=== PATIENT | male | born 1975 | race American Indian/Alaskan Native ===

== ENCOUNTER 2021-01-04 22:53 | Emergency (ER) | payer BC ==
[2021-01-04 23:08] VITALS: BP 137/93; PULSE 122
--- NOTE | 2021-01-04 23:44 | EDM.PDOC ---
ED HPI GENERAL MEDICAL PROBLEM - General Chief Complaint: Lower Extremity Injury/Pain Stated Complaint: LEFT FOOT HURT Time Seen by Provider: 01/04/21 23:39 Source of Information: Reports: Patient History Limitations: Reports: No Limitations - History of Present Illness INITIAL COMMENTS - FREE TEXT/NARRATIVE: 45 y/o M c/o L foot pain for 4 days. Pn began while he was [facility] [place] [facility]. No known injury. Is on his feet most of the day. Hx of gout but states he usually feels gout in his big toes. Denies loss of funciton in his foot, loss of sensation. Pn is 7/10 over the top of the foot and lateral metatarsal. He denies fever, cough, chills, drugs, etoh, cp, db, abd pn. - Related Data Allergies Allergy/AdvReac Type Severity Reaction Status Date / Time Penicillins Allergy Nausea Verified 01/04/21 23:14 Home Meds: Home Meds Ibuprofen 1 tab PO Q6H PRN 09/06/14 [History] Past Medical History Musculoskeletal History: Reports: Gout Other Musculoskeletal History: spinal growths removed Social & Family History - Tobacco Use Tobacco Use Status *Q: Current Every Day Tobacco User Years of Tobacco use: 17 Packs/Tins Daily: 1 Review of Systems - Review of Systems Review Of Systems: Comprehensive ROS is negative, except as noted in HPI. ED EXAM, GENERAL - Physical Exam Exam: See Below Exam Limited By: No Limitations General Appearance: Alert, No Apparent Distress Respiratory/Chest: No Respiratory Distress, Lungs Clear, Normal Breath Sounds, No Accessory Muscle Use, Chest Non-Tender Cardiovascular: Normal Peripheral Pulses, Regular Rate, Rhythm, No Edema, No Gallop, No JVD, No Murmur, No Rub Peripheral Pulses: 2+: Posterior Tibial (L), Posterior Tibial (R), Dorsalis Pedis (L), Dorsalis Pedis (R) GI/Abdominal: Soft, Non-Tender Extremities: Other (L foot appears slightly swollen with poitn tednerness over the navicular bone on the dorsum of the foot as well as tenderness to the lateral 5th metatarsarl.) Neurological: Alert, Oriented Psychiatric: Normal Affect, Normal Mood Skin Exam: Warm, Dry, Intact Course - Vital Signs Last Recorded V/S: Last Vital Signs Temp 97.7 F 01/04/21 23:05 Pulse 122 H 01/04/21 23:05 Resp 20 01/04/21 23:05 BP 137/93 H 01/04/21 23:05 Pulse Ox 96 01/04/21 23:05 - Orders/Labs/Meds Orders: Active Orders 24 hr Category Date Time Status methylPREDNISolone Sod Succ [Solu-MEDROL] Med 01/05/21 00:50 Once 125 mg IM ONETIME ONE - Re-Assessments/Exams Free Text/Narrative Re-Assessment/Exam: 01/05/21 00:51 I discussed the pts exam and xray with him and explained that he has no acute fracture in his foot. His exquisite pain in his foot could be the result of an inflammatory process and I will offer him Solu-Medrol to treat his inflammation. Departure - Departure Time of Disposition: 00:52 Disposition: Home, Self-Care 01 Condition: Good Clinical Impression: Foot pain, left - Discharge Information Instructions: Foot Pain Forms: ED Department Discharge Additional Instructions: RX: Prednisone Use Tylenol for pain. Do not take Ibuprofen while on Prednisone. If symptoms do not resolve in a week to 10 days follow up with your primary care facility or return to the ER. Sepsis Event Note (ED) - Evaluation Sepsis Screening Result: No Definite Risk - Focused Exam Vital Signs: Vital Signs Temp Pulse Resp BP Pulse Ox 01/04/21 23:05 97.7 F 122 H 20 137/93 H 96 - My Orders Last 24 Hours: My Active Orders 01/05/21 00:50 methylPREDNISolone Sod Succ [Solu-MEDROL] 125 mg IM ONETIME ONE - Assessment/Plan Last 24 Hours: My Active Orders 01/05/21 00:50 methylPREDNISolone Sod Succ [Solu-MEDROL] 125 mg IM ONETIME ONE
--- NOTE | 2021-01-05 00:47 | CR ---
PROCEDURE INFORMATION: Exam: XR Left Foot Exam date and time: 01/05/2021 12:25 AM Age: 45 years old Clinical indication: Other: No known trauma-point tenderness over navicular and 5th metatarsal; Additional info: Foot pain TECHNIQUE: Imaging protocol: XR Left foot. Views: 1 or 2 views. Total images: 2 COMPARISON: No relevant prior studies available. FINDINGS: Bones/joints: No fractures. Normal alignment is maintained in the midfoot, hindfoot, and forefoot. Joint spaces are well-maintained. No blastic or lytic lesions. No gross ankle joint effusion. No hindfoot coalition. Small os trigonum noted. Soft tissues: No periostitis or osteolysis. No gross soft tissue abnormalities. No radiopaque foreign bodies. Other findings: Normal mineralization. IMPRESSION: No acute findings.
[2021-01-05] MEDS ORDERED: methylPREDNISolone Sodium Succinate 125 MG/2 ML SDV IM ONE (00:50)
== END 2021-01-05 01:07 | disposition home or self-care (01) ==
LOC: DL.ED 22:53
DX: M79.672 Pain in left foot (principal); Z88.0 Allergy status to penicillin; Z72.0 Tobacco use
CPT/HCPCS: 73620; 96372; 99283; J2930

== ENCOUNTER 2021-06-19 07:52 | Emergency (ER) | payer BC ==
[2021-06-19] MEDS ORDERED: diphenhydrAMINE 50 MG/ML SDV IVPUSH ONE (08:16)
[2021-06-19] MEDS ORDERED: methylPREDNISolone Sodium Succinate 125 MG/2 ML SDV IVPUSH ONE (08:17)
[2021-06-19 08:19] VITALS: BP 108/69; PULSE 86
== END 2021-06-19 09:34 | disposition home or self-care (01) ==
LOC: DL.ED 07:52
DX: L50.0 Allergic urticaria (principal); T39.395A Adverse effect of other nonsteroidal anti-inflammatory drugs [NSAID], initial encounter; Z88.6 Allergy status to analgesic agent; Z88.0 Allergy status to penicillin; M10.9 Gout, unspecified; E66.9 Obesity, unspecified; Z68.37 Body mass index [BMI] 37.0-37.9, adult; Z79.899 Other long term (current) drug therapy
CPT/HCPCS: 96374; 96375; 99283; 99284-25; J1200; J2930

== ENCOUNTER 2021-12-17 22:16 | Emergency (ER) | payer BC ==
[2021-12-17 22:39] VITALS: BP 141/83; PULSE 111
[2021-12-17 23:35] LABS: ANION GAP 13.8 mEq/L (7-13)
[2021-12-17] MEDS ORDERED: Colchicine 0.6 MG Tab PO ONE (23:52)
== END 2021-12-18 00:16 | disposition home or self-care (01) ==
LOC: DL.ED 22:16
DX: M10.9 Gout, unspecified (principal); F17.210 Nicotine dependence, cigarettes, uncomplicated; E66.9 Obesity, unspecified; Z68.37 Body mass index [BMI] 37.0-37.9, adult; Z88.8 Allergy status to other drugs, medicaments and biological substances; Z88.0 Allergy status to penicillin; Z79.899 Other long term (current) drug therapy
CPT/HCPCS: 36415; 73560; 80053; 84550; 85025; 99283; A9270

== ENCOUNTER 2024-06-09 12:48 | Inpatient (IN) | payer BC ==
[2024-06-09 13:26] LABS: BASOPHILS PERCENT AUTO 0.5 % (0.0-1.0); EOSINOPHILS PERCENT AUTO 2.2 % (1.0-3.0); HEMOGLOBIN 14.1 g/dL (14.0-18.0); LYMPHOCYTES PERCENT AUTO 15.8 % (20.5-50.1); MEAN CORPUSCULAR HEMOGLOBIN 29.1 pg (27.0-34.0); MEAN CORPUSCULAR VOLUME 90.7 fL (80-100); MONOCYTES PERCENT AUTO 6.2 % (2-8); NEUTROPHILS PERCENT AUTO 75.3 % (42.2-75.2); PLATELET COUNT,PLT 295 10^3/uL (150-450); RED BLOOD CELL COUNT 4.85 10^6/uL (4.6-6.2)
[2024-06-09 13:41] LABS: ALANINE AMINOTRANSFERASE,ALT 46 U/L (16-63); ALBUMIN 2.9 g/dL (3.4-5.0); ALKALINE PHOSPHATASE 96 U/L (46-116); ANION GAP 14.5 mEq/L (7-13); ASPARTATE AMNIOTRANSFERASE,AST 18 U/L (15-37); BILIRUBIN TOTAL 0.4 mg/dL (0.2-1.0); BLOOD UREA NITROGEN,BUN 12 mg/dL (7-18); BUN/CREATININE RATIO 11.5 (No establ ref range); CALCIUM 8.7 mg/dL (8.5-10.1); CARBON DIOXIDE,CO2 28 mmol/L (21-32); CHLORIDE,CL 99 mmol/L (98-107); CREATININE 1.04 mg/dL (0.70-1.30); EST CRCL DRUG DOSING (CG) 85.92 mL/min; GLUCOSE RANDOM 246 mg/dL (70-99); MAGNESIUM 1.7 mg/dL (1.8-2.4); POTASSIUM,K 3.5 mmol/L (3.5-5.1); PROTEIN TOTAL,TP 8.5 g/dL (6.4-8.2); SODIUM,NA 138 mmol/L (136-145)
[2024-06-09 13:42] LABS: A/G RATIO 0.52; C-REACTIVE PROTEIN > 25.00 ng/dL (<=0.50); ESTIMATED GFR 88 mL/min (>=60)
[2024-06-09 13:46] LABS: LACTIC ACID 2.1 mmol/L (0.4-2.0)
[2024-06-09] MEDS: Sodium Chloride 0.9% 1,000 ML IV ONE ×3 (14:00→17:30)
[2024-06-09] MEDS: VANCOmycin 2 GM in Sodium Chloride 0.9% 500 ML IV ONE (14:04)
[2024-06-09] MEDS: Iopamidol 612 MG/ML 100 ML Bottle IVPUSH ONE (14:24)
[2024-06-09] MEDS ORDERED: Polyethylene Glycol 3350 Powder 17 GM Packet PO PRN (17:07)
[2024-06-09] MEDS ORDERED: Bisacodyl 5 MG Tab PO PRN (17:07)
[2024-06-09] MEDS ORDERED: Ondansetron 4 MG/2 ML SDV IVPUSH PRN (17:07)
[2024-06-09] MEDS ORDERED: Melatonin 3 MG Tab PO PRN (17:07)
[2024-06-09] MEDS ORDERED: Docusate Sodium 100 MG Cap PO PRN (17:07)
[2024-06-09] MEDS ORDERED: Acetaminophen 325 MG Tab PO PRN (17:07)
[2024-06-09] MEDS ORDERED: Sennosides/Docusate Sodium 50-8.6 MG Tab PO PRN (17:07)
[2024-06-09] MEDS ORDERED: Sodium Chloride 0.9% 500 ML IV SCH (17:30)
[2024-06-09 17:43] LABS: HEMOGLOBIN A1C 8.1 % (<5.7)
[2024-06-09] MEDS ORDERED: 50% Dextrose in Water 50 ML Syringe IVPUSH PRN (19:01)
[2024-06-09] MEDS ORDERED: Glucagon,Human Recombinant 1 MG Vial IM PRN (19:01)
[2024-06-09] MEDS: Meropenem 1 GM SDV IVPUSH SCH (22:25)
[2024-06-09] MEDS: VANCOmycin 1.5 GM/300 ML 1.5 GM in Premix Bag 1 BAG IV SCH (22:32)
[2024-06-10] MEDS ORDERED: VANCOmycin 1.5 GM/300 ML 1.5 GM in Premix Bag 1 BAG IV SCH (02:00)
[2024-06-10] MEDS: Acetaminophen/oxyCODONE 325-5 MG Tab PO PRN (02:32)
[2024-06-10 07:27] LABS: ALBUMIN 2.2 g/dL (3.4-5.0); BILIRUBIN TOTAL 0.3 mg/dL (0.2-1.0); BUN/CREATININE RATIO 10.3 (No establ ref range); C-REACTIVE PROTEIN 17.61 ng/dL (<=0.50); CALCIUM 8.2 mg/dL (8.5-10.1); CREATININE 0.87 mg/dL (0.70-1.30); EST CRCL DRUG DOSING (CG) 102.71 mL/min; MAGNESIUM 1.8 mg/dL (1.8-2.4); PROTEIN TOTAL,TP 6.9 g/dL (6.4-8.2)
[2024-06-10 07:30] LABS: A/G RATIO 0.47
[2024-06-10 07:34] LABS: BASOPHILS PERCENT AUTO 0.6 % (0.0-1.0); EOSINOPHILS PERCENT AUTO 3.6 % (1.0-3.0); HEMATOCRIT 37.1 % (40.0-54.0); HEMOGLOBIN 12.1 g/dL (14.0-18.0); LYMPHOCYTES PERCENT AUTO 19.4 % (20.5-50.1); MEAN CORPUSCULAR HEMOGLOBIN 29.9 pg (27.0-34.0); MEAN CORPUSCULAR HGB CONC 32.6 g/dL (33.0-35.0); MEAN CORPUSCULAR VOLUME 91.6 fL (80-100); MONOCYTES PERCENT AUTO 8.2 % (2-8); NEUTROPHILS PERCENT AUTO 68.2 % (42.2-75.2); PLATELET COUNT,PLT 264 10^3/uL (150-450); RED BLOOD CELL COUNT 4.05 10^6/uL (4.6-6.2); WHITE BLOOD CELL COUNT,WBC 13.8 10^3/uL (5.0-10.0)
[2024-06-10] MEDS: Pantoprazole 40 MG Tab.CR PO SCH (07:45)
[2024-06-10] MEDS ORDERED: metFORMIN 500 MG Tab PO SCH (08:00)
[2024-06-10] MEDS: Insulin Lispro 100 Units/ML 3 ML Vial SUBCUT SCH (09:11)
[2024-06-10] MEDS: Enoxaparin 40 MG/0.4 ML Syringe SUBCUT SCH (09:11)
[2024-06-10] MEDS: Magnesium Oxide 400 MG Tab PO SCH (09:11)
[2024-06-10] MEDS ORDERED: 50% Dextrose in Water 50 ML Syringe IVPUSH PRN (09:31)
[2024-06-10] MEDS ORDERED: Glucagon,Human Recombinant 1 MG Vial IM PRN (09:31)
[2024-06-10] MEDS: Sertraline 50 MG Tab PO SCH (11:05)
[2024-06-10] MEDS: Lidocaine 1% 5 ML VIAL INJECT ONE (15:00)
[2024-06-10] MEDS: Lidocaine 1% with EPINEPHrine 1:100,000 20 ML MDV INJECT ONE (16:40)
[2024-06-10] MEDS: Sodium Chloride 0.9% 10 ML Syringe FLUSH PRN (22:42)
[2024-06-10] MEDS: VANCOmycin 1.75 GM in Sodium Chloride 0.9% 500 ML IV SCH (22:49)
[2024-06-10] MEDS: Insulin Glarg,Human.Rec.Analog 100 Unit/ML 10 ML Vial SUBCUT SCH (22:56)
[2024-06-11 06:33] LABS: BASOPHILS PERCENT AUTO 0.6 % (0.0-1.0); EOSINOPHILS PERCENT AUTO 4.1 % (1.0-3.0); HEMATOCRIT 38.4 % (40.0-54.0); HEMOGLOBIN 12.2 g/dL (14.0-18.0); LYMPHOCYTES PERCENT AUTO 24.5 % (20.5-50.1); MEAN CORPUSCULAR HEMOGLOBIN 28.7 pg (27.0-34.0); MEAN CORPUSCULAR HGB CONC 31.8 g/dL (33.0-35.0); MEAN CORPUSCULAR VOLUME 90.4 fL (80-100); MONOCYTES PERCENT AUTO 6.3 % (2-8); NEUTROPHILS PERCENT AUTO 64.5 % (42.2-75.2); PLATELET COUNT,PLT 279 10^3/uL (150-450); RED BLOOD CELL COUNT 4.25 10^6/uL (4.6-6.2); WHITE BLOOD CELL COUNT,WBC 12.1 10^3/uL (5.0-10.0)
[2024-06-11 07:08] LABS: ALBUMIN 2.4 g/dL (3.4-5.0); ANION GAP 11.2 mEq/L (7-13); BILIRUBIN TOTAL 0.3 mg/dL (0.2-1.0); BUN/CREATININE RATIO 9.5 (No establ ref range); C-REACTIVE PROTEIN 14.94 ng/dL (<=0.50); CALCIUM 8.8 mg/dL (8.5-10.1); CREATININE 0.95 mg/dL (0.70-1.30); EST CRCL DRUG DOSING (CG) 94.06 mL/min; POTASSIUM,K 4.2 mmol/L (3.5-5.1); PROTEIN TOTAL,TP 7.3 g/dL (6.4-8.2)
[2024-06-11 07:09] LABS: A/G RATIO 0.49
[2024-06-11] MEDS: Insulin Glarg,Human.Rec.Analog 100 Unit/ML 10 ML Vial SUBCUT SCH (22:34)
[2024-06-12 06:29] LABS: BASOPHILS PERCENT AUTO 0.8 % (0.0-1.0); EOSINOPHILS PERCENT AUTO 4.1 % (1.0-3.0); HEMATOCRIT 37.6 % (40.0-54.0); HEMOGLOBIN 12.6 g/dL (14.0-18.0); LYMPHOCYTES PERCENT AUTO 24.2 % (20.5-50.1); MEAN CORPUSCULAR HEMOGLOBIN 30.3 pg (27.0-34.0); MEAN CORPUSCULAR HGB CONC 33.5 g/dL (33.0-35.0); MEAN CORPUSCULAR VOLUME 90.4 fL (80-100); MONOCYTES PERCENT AUTO 8.5 % (2-8); NEUTROPHILS PERCENT AUTO 62.4 % (42.2-75.2); PLATELET COUNT,PLT 307 10^3/uL (150-450); RED BLOOD CELL COUNT 4.16 10^6/uL (4.6-6.2); WHITE BLOOD CELL COUNT,WBC 11.4 10^3/uL (5.0-10.0)
[2024-06-12 06:50] LABS: ALBUMIN 2.4 g/dL (3.4-5.0); BILIRUBIN TOTAL 0.3 mg/dL (0.2-1.0); CALCIUM 8.5 mg/dL (8.5-10.1); CREATININE 0.9 mg/dL (0.70-1.30); EST CRCL DRUG DOSING (CG) 99.29 mL/min; PROTEIN TOTAL,TP 7.3 g/dL (6.4-8.2); VANCOMYCIN RANDOM 21.1 ug/mL (No Normal Range)
[2024-06-12 06:51] LABS: A/G RATIO 0.49
[2024-06-12 11:39] VITALS: BP 108/90; PULSE 83
== END 2024-06-12 14:46 | DRG 720 ==
LOC: DL.ED 12:48 → DL.MS 15:33 → DL.ED 15:51
PROVIDERS: ADMIT Internal Medicine; ATTEND Internal Medicine
PROC: 3E03329 Introduction of Other Anti-infective into Peripheral Vein, Percutaneous Approach (ICD-10-PCS; principal; 2024-06-09)
PROC: 0H9MXZZ Drainage of Right Foot Skin, External Approach (ICD-10-PCS; 2024-06-10)
DX: A41.9 Sepsis, unspecified organism (principal); E11.40 Type 2 diabetes mellitus with diabetic neuropathy, unspecified; E88.09 Other disorders of plasma-protein metabolism, not elsewhere classified; L03.115 Cellulitis of right lower limb; F17.210 Nicotine dependence, cigarettes, uncomplicated; F32.A Depression, unspecified; E66.9 Obesity, unspecified; F15.90 Other stimulant use, unspecified, uncomplicated; E83.42 Hypomagnesemia; F43.10 Post-traumatic stress disorder, unspecified; D64.9 Anemia, unspecified; L02.611 Cutaneous abscess of right foot; B86 Scabies; Z86.16 Personal history of COVID-19; Z68.39 Body mass index [BMI] 39.0-39.9, adult; Z88.6 Allergy status to analgesic agent; Z88.0 Allergy status to penicillin; Z90.89 Acquired absence of other organs; Z98.890 Other specified postprocedural states
CPT/HCPCS: 10060; 36415; 73701-RT; 80053; 80202; 82947; 83036; 83605; 83735; 85025; 86140; 87040; 87070; 87077; 87205; 96365; 99223; 99232; 99238; 99284; 99284-25; A9270-GY; J1650; J1815-GY; J2003; J2185; J3371; J3372; J7030; J7040; Q9967